=== PATIENT | female | born 1975 | race African-American/Black ===

== ENCOUNTER 2017-06-16 14:09 | Emergency (ER) | payer MEDICAID ==
[~2017-06-16] VITALS: Ht 177.8 cm; Wt 77.1 kg
[~2017-06-16 14:09] MED LIST: NORCO 5-325 TA1 EACH ORAL
[2017-06-16 14:30] VITALS: BP 108/55
[2017-06-16] MEDS ORDERED: PERMETHRIN60 GM TOPIC (15:36)
[2017-06-16] MEDS ORDERED: BENADRYL25 MG ORAL (15:36)
--- NOTE | 2017-06-16 15:42 | Emergency Room Report ---
History of Present Illness General Chief Complaint: Skin Rash/Abscess Source: Patient Present Illness HPI [id number] presents with rash to bilateral arms, legs with associated itch since staying at [employer] last night. Also in webbing between fingers. Patient states "its bed bugs, we saw them." Hasnt taken any OTC meds. Allergies: Coded Allergies: No Known Allergies (Unverified , 12/10/13) Patient History Past Medical History: none Past Surgical History: none Pertinent Family History: none Now: No Immunizations: UTD Reviewed Nursing Documentation: PMH: Agreed, PSxH: Agreed Nursing Documentation-PMH Past Medical History: No Stated History Review of Systems All Other Systems: negative except mentioned in HPI Physical Exam Vital Signs Date Time Temp Pulse Resp B/P (MAP) Pulse Ox O2 Delivery O2 Flow Rate FiO2 06/16/17 14:22 97.9 77 20 107/54 98 Room Air Sp02 EP Interpretation: reviewed, normal General Appearance: normal inspection, well appearing, no apparent distress, alert, GCS 15, non-toxic Head: normocephalic, atraumatic Eyes: bilateral eye PERRL, bilateral eye EOMI ENT: normal ENT inspection, hearing grossly normal, normal pharynx, no angioedema, normal voice, TMs + canals normal, uvula midline, moist mucus membranes Neck: normal inspection, full range of motion, supple, thyroid normal, no meningismus, no bony tend Respiratory: normal inspection, lungs clear, normal breath sounds, no rhonchi, no respiratory distress, no retraction, no accessory muscle use, no wheezing, speaking full sentences Cardiovascular #1: regular rate, rhythm, no edema, no JVD, normal capillary refill Gastrointestinal: normal inspection, normal bowel sounds, non tender, soft, no mass, no peritonitis, non-distended, no guarding, no hernia, no pulsatile mass Genitourinary: no CVA tenderness Musculoskeletal: normal inspection, back normal, normal range of motion, no calf tenderness, pelvis stable, Liv's Sign negative Neurologic: normal inspection, alert, oriented x3, responsive, 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 No burrowing noted. No abscess or cellulitis. No erythema. Lymphatic: normal inspection, no adenopathy Medical Decision Making Diagnostic Impression: Primary Impression: Rash and other nonspecific skin eruption ER Course Scabies vs bed bugs less likely given digit webbing affected and no 3-in-a-row pattern usually seen with bed bugs VSS, afebrile Well appearing yo M F with DDX: Plan: Obtain labs, ua, ucx, ucg, CXR, EKG ER course: Patient has remained stable during ED stay. Disposition: Patient is to be discharged to home. Prescriptions given are elimite, benadryl Patient is instructed to follow up with their primary care doctor within 5 days. Strict return precautions discussed with patient such as fever, chills, worsening/severe pain, nausea, vomiting, which may indicate severe illness. Patient verbalizes understanding and agrees with plan. Please note that this Emergency Department Report was dictated using [employer] software, occasionally this can lead to erroneous entry secondary to interpretation by the dictation equipment Last Vital Signs Date Time Temp Pulse Resp B/P (MAP) Pulse Ox O2 Delivery O2 Flow Rate FiO2 06/16/17 14:30 97.9 72 20 108/55 98 Room Air Status: improved Disposition: HOME, SELF-CARE Condition: Improved Scripts Diphenhydramine Hcl* (BENADRYL*) 25 Mg Capsule 25 MG ORAL Q6H Y for Itching for 7 Days, #20 CAP Prov: DONOVAN MISTRY M.D. 06/16/17 Permethrin* (ELIMITE*) 60 Gm Cream..g. 1 APPLIC TOPIC ONCE, #60 GM 0 Refills Apply cream from head to toe; leave on for 8-14 hours before washing off with water; may reapply in 1 week if live mites appear. Prov: DONOVAN MISTRY M.D. 06/16/17 Patient Instructions: Rash Additional Instructions: - Apply cream head to toe tonight and wash off in morning - Take benadryl as needed for itch DONOVAN MISTRY M.D. Jun 16, 2017 15:42
[2017-06-16 15:44] VITALS: BP 108/55
== END 2017-06-16 15:44 | disposition home or self-care (01) ==
LOC: EMR 15:00
DX: R21 Rash and other nonspecific skin eruption (principal); L29.9 Pruritus, unspecified
CPT/HCPCS: 99283